=== PATIENT | male | born 1990 | race Caucasian/White ===

== ENCOUNTER → 2021-03-12 | Outpatient (CLI) | payer BC ==
[~2021-03-12] MED LIST: NKHM; VICODIN ES 7501 TA1 PO
== END | disposition home or self-care (01) ==
LOC: CARD 10:41
PROVIDERS: ATTEND Nurse Practitioner Family
DX: Z51.81 Encounter for therapeutic drug level monitoring (principal); Z79.899 Other long term (current) drug therapy